=== PATIENT | female | born 1985 | race Caucasian/White ===

== ENCOUNTER 2018-03-25 14:49 | Emergency (ER) | payer MEDICAID ==
[~2018-03-25] VITALS: Ht 160 cm; Wt 70.0 kg
[2018-03-25 15:12] VITALS: BP 132/67
--- NOTE | 2018-03-25 15:30 | NUR ---
PT. CAME INTO THE ED W/ C/O VAGINAL BLEEDING X 1 WEEK. PT. STATES " I AM 13 WEEKS , I HAVE BEEN BLEEDING FOR ABOUT A WEEK BUT YESTERDAY IT GOT WORSE AND HAVE PASSED SOME BLOOD CLOTS, SO I CAME IN TO GO GET CHECKED OUT. I WENT TO MY BUSINESS WRITER ON 03/17/18 AND THEY SAID I HAD AN INFECTION IN THE URINE SO I AM STILL TAKING ANTIBIOTICS". PT. AAOX4, RR EVEN AND UNLABORED, DENIES FEVER, DENIES SOB, DENIES N/V/D. PT. IS A1. BUSINESS WRITER ESTABLISHED. PT. HAS 7/10 PAIN ON RLQ THAT RADIATES TO THE R FLANK AREA. PT. STATES " I HAVE HAD BURNING UPON URINATION. ER MD NOTIFIED. WILL CONTINUE TO MONITOR.
[2018-03-25 15:45] LABS: APPEARANCE,URINE CLEAR (CLEAR); BILIRUBIN,URINE NEGATIVE (NEGATIVE); BLOOD, URINE 3+ (NEGATIVE); COLOR,URINE YELLOW (YELLOW); LEUKOCYTE ESTERASE ,URINE TRACE (NEGATIVE); NITRITE, URINE NEGATIVE (NEGATIVE); UGLUCOSE NEGATIVE (NEGATIVE)
[2018-03-25 16:15] LABS: RBC,URINE 3-10 (FEW) /HPF (0-5); WBC,URINE 0-5 (RARE) /HPF (0-5)
[2018-03-25 16:22] LABS: BASOPHILS # (AUTO) 0.1 K/uL (0.00-0.22); EOSINOPHILS % (AUTO) 0.5 % (0.0-4.0); HEMATOCRIT 34.9 % (36-48); HEMOGLOBIN 10.8 g/dL (12.0-16.0); LYMPHOCYTES # (AUTO) 1.2 K/uL (2.5-16.5); LYMPHOCYTES % (AUTO) 15.5 % (20.5-51.1); MEAN CORPUSCULAR HEMOGLOBIN 23 pg (27-31); MEAN CORPUSCULAR HGB CONC 31 g/dL (33-37); MEAN CORPUSCULAR VOLUME 73.8 fL (80-94); MONOCYTES # (AUTO) 0.3 K/uL (0.8-1.0); NEUTROPHILS # (AUTO) 6.3 K/uL (1.8-7.7); PLATELET COUNT (AUTO) 255 K/uL (140-450); RED BLOOD CELL COUNT(AUTO) 4.73 MIL/uL (4.20-5.40); RED CELL DISTRIBUTION WIDTH 17.4 % (11.6-13.7); WHITE BLOOD COUNT (AUTO) 7.9 K/uL (4.8-10.8)
--- NOTE | 2018-03-25 16:38 | NUR ---
PT. RESTING IN BED, RR EVEN AND UNLABORED. BED IN LOWEST POSITION. WILL CONTINUE TO MONITOR.
[2018-03-25 17:04] LABS: ANION GAP 11.3 (8-16); CREATININE 0.6 mg/dL (0.6-1.3); POTASSIUM 3.3 mmol/L (3.5-5.1)
--- NOTE | 2018-03-25 17:38 | NUR ---
Assuming temporary care of the patient at this time.
--- NOTE | 2018-03-25 17:40 | NUR ---
pt resting comfortably in [facility] at this time. vss. safety precautions in place. will continue to monitor.
--- NOTE | 2018-03-25 18:37 | NUR ---
Pt continues to rest comfortably in the [facility] at this time. VSS remain stable. safety precautions in place. will continue to monitor.
--- NOTE | 2018-03-25 19:05 | NUR ---
Rhogam given at this time in left gluteus medius IM per order. Pt tolerated well.
[2018-03-25 19:50] VITALS: BP 117/58
== END 2018-03-25 19:50 | disposition home or self-care (01) ==
LOC: MED 14:49
DX: O20.0 Threatened abortion (principal); O23.41 Unspecified infection of urinary tract in pregnancy, first trimester; Z3A.08 8 weeks gestation of pregnancy
CPT/HCPCS: 36415; 36430; 76801; 80048; 81001; 84702; 85025; 86850; 86886; 86900; 86901; 99285; J2790

== ENCOUNTER 2018-07-28 16:24 | Emergency (ER) | payer MEDICAID ==
[~2018-07-28] VITALS: Ht 160 cm; Wt 70.1 kg
[2018-07-28 16:40] VITALS: BP 121/72
[2018-07-28 18:12] LABS: BASOPHILS # (AUTO) 0.1 K/uL (0.00-0.22); BASOPHILS % (AUTO) 0.9 % (0.0-2.0); EOSINOPHILS # (AUTO) 0.1 K/uL (0-0.4); EOSINOPHILS % (AUTO) 0.8 % (0.0-4.0); HEMATOCRIT 33.6 % (36-48); HEMOGLOBIN 10.8 g/dL (12.0-16.0); LYMPHOCYTES # (AUTO) 1.2 K/uL (2.5-16.5); LYMPHOCYTES % (AUTO) 16.3 % (20.5-51.1); MEAN CORPUSCULAR HEMOGLOBIN 23 pg (27-31); MEAN CORPUSCULAR HGB CONC 32 g/dL (33-37); MEAN CORPUSCULAR VOLUME 72.7 fL (80-94); MONOCYTES # (AUTO) 0.3 K/uL (0.8-1.0); MONOCYTES % (AUTO) 3.3 % (1.7-9.3); NEUTROPHILS % (AUTO) 78.7 % (42.2-75.2); PLATELET COUNT (AUTO) 240 K/uL (140-450); RED BLOOD CELL COUNT(AUTO) 4.62 MIL/uL (4.20-5.40); RED CELL DISTRIBUTION WIDTH 16.3 % (11.6-13.7); WHITE BLOOD COUNT (AUTO) 7.7 K/uL (4.8-10.8)
[2018-07-28 18:18] LABS: APPEARANCE,URINE CLEAR (CLEAR); COLOR,URINE STRAW (YELLOW)
[2018-07-28 18:19] LABS: BILIRUBIN,URINE NEGATIVE (NEGATIVE); BLOOD, URINE 3+ (NEGATIVE); LEUKOCYTE ESTERASE ,URINE NEGATIVE (NEGATIVE); NITRITE, URINE NEGATIVE (NEGATIVE); UGLUCOSE NEGATIVE (NEGATIVE)
[2018-07-28 18:46] LABS: RBC,URINE 0-5 (RARE) /HPF (0-5); WBC,URINE NONE SEEN /HPF (0-5)
[2018-07-28 18:58] VITALS: BP 120/68
== END 2018-07-28 18:58 | disposition home or self-care (01) ==
LOC: MED 16:24
DX: O36.4XX0 Maternal care for intrauterine death, not applicable or unspecified (principal); Z3A.01 Less than 8 weeks gestation of pregnancy; Z90.49 Acquired absence of other specified parts of digestive tract
CPT/HCPCS: 36415; 76801; 81001; 81025; 84702; 85025; 86900; 86901; 99285; Q0092

== ENCOUNTER 2023-04-11 21:14 | Emergency (ER) | payer BC, MEDICAID ==
[~2023-04-11] VITALS: Ht 157.5 cm; Wt 68.9 kg
[2023-04-11 21:26] VITALS: BP 116/76; PULSE 67; RESP 20; TEMP 98; O2SAT 98
--- NOTE | 2023-04-11 21:32 | NUR ---
pt in the lobby
[2023-04-11 22:24] LABS: APPEARANCE,URINE CLEAR (CLEAR); BILIRUBIN,URINE NEGATIVE (NEGATIVE); BLOOD, URINE NEGATIVE (NEGATIVE); COLOR,URINE YELLOW (YELLOW); LEUKOCYTE ESTERASE ,URINE NEGATIVE (NEGATIVE); NITRITE, URINE NEGATIVE (NEGATIVE); PH,URINE 7.5 (5.0-9.0); UGLUCOSE NEGATIVE (NEGATIVE)
[2023-04-11 22:27] LABS: BASOPHILS # (AUTO) 0.1 K/uL (0.00-0.22); EOSINOPHILS # (AUTO) 0.1 K/uL (0-0.4); EOSINOPHILS % (AUTO) 1.6 % (0.0-4.0); HEMATOCRIT 39.7 % (36-48); LYMPHOCYTES # (AUTO) 1.7 K/uL (2.5-16.5); MEAN CORPUSCULAR HEMOGLOBIN 32 pg (27-31); MEAN CORPUSCULAR HGB CONC 35 g/dL (33-37); MEAN CORPUSCULAR VOLUME 90.2 fL (80-94); MONOCYTES # (AUTO) 0.4 K/uL (0.8-1.0); MONOCYTES % (AUTO) 4.7 % (1.7-9.3); NEUTROPHILS # (AUTO) 5.5 K/uL (1.8-7.7); NEUTROPHILS % (AUTO) 70.7 % (42.2-75.2); PLATELET COUNT (AUTO) 253 K/uL (140-450); RED CELL DISTRIBUTION WIDTH 13.5 % (11.6-13.7); WHITE BLOOD COUNT (AUTO) 7.8 K/uL (4.8-10.8)
[2023-04-11 22:52] LABS: ALBUMIN 3.7 g/dL (3.4-5.0); ANION GAP 11.7 (8-16); CARBON DIOXIDE 27.2 mmol/L (21-32); CREATININE 0.7 mg/dL (0.6-1.3); POTASSIUM 3.9 mmol/L (3.5-5.1); TOTAL BILIRUBIN 0.7 mg/dL (0.0-1.0)
--- NOTE | 2023-04-12 00:15 | NUR ---
PT TO ROOM 7.
--- NOTE | 2023-04-12 00:16 | NUR ---
DR LOZANO AT BEDSIDE
[2023-04-12] MEDS ORDERED: ONDANSETRON 4 MG/2 ML VIAL IVP ONE (00:20)
[2023-04-12] MEDS ORDERED: MORPHINE SULFATE 4 MG/ML SYR IVP ONE (00:20)
--- NOTE | 2023-04-12 00:20 | NUR ---
37 YO F BIB SELF C/O RLQ ABD PAIN X 5 DAYS. PT PRESCRIBED TRAMADOL BY PREVIOUS DR BUT STATES DOES NOT HELP. PT STATES CONSTANT 8/10 PAIN ACCOMPANIED BY VBLOATING THAT CAUSES DISCOMFORT. NKDA PMHX: CHOLECYSTECTOMY
--- NOTE | 2023-04-12 00:54 | NUR ---
PT TO CT
--- NOTE | 2023-04-12 01:18 | NUR ---
ULTRASOUND AT BEDSIDE
--- NOTE | 2023-04-12 02:42 | NUR ---
PAIN LEVEL IS 0/10
[2023-04-12 03:10] VITALS: O2SAT 99
--- NOTE | 2023-04-12 03:18 | NUR ---
PT IS RESTING IN BED ON BEDSIDE [employer]. PENDING DISPO.
--- NOTE | 2023-04-12 03:44 | NUR ---
PT UP TO BATHROOM WITH STEADY GAIT. CALL LIGHT WITH IN REACH TO PT
--- NOTE | 2023-04-12 04:34 | NUR ---
PENDING CT AND US RESULTS
[2023-04-12 05:07] VITALS: O2SAT 99
[2023-04-12 05:51] VITALS: BP 105/66; PULSE 70; RESP 12; O2SAT 96
[2023-04-12] MEDS ORDERED: OMEP20EC11 PO (05:54)
[2023-04-12] MEDS ORDERED: ACET-2619 PO (05:54)
[2023-04-12] MEDS ORDERED: SIME80TA41 PO (05:54)
--- NOTE | 2023-04-12 06:01 | NUR ---
Patient discharged with v/s stable. Written and verbal after care instructions given and explained. Patient verbalized understanding. Ambulatory with steady gait. All questions addressed prior to discharge. Advised to follow up with PMD.
== END 2023-04-12 06:01 | disposition home or self-care (01) ==
LOC: MED 21:14
DX: R10.31 Right lower quadrant pain (principal); R14.0 Abdominal distension (gaseous); Z79.899 Other long term (current) drug therapy
CPT/HCPCS: 36415; 74176; 76856; 80053; 81003; 81025; 83690; 85025; 93976; 96374; 96375; 99285; J2270; J2405; Q0092

== ENCOUNTER 2023-05-14 14:08 | Emergency (ER) | payer BC ==
[~2023-05-14] VITALS: Ht 157.5 cm; Wt 68.7 kg
[~2023-05-14 14:08] MED LIST: ACET-2619 PO; OMEP20EC11 PO; SIME80TA41 PO
[2023-05-14 14:13] VITALS: BP 126/84; PULSE 87; RESP 20; TEMP 97; O2SAT 99
[2023-05-14 15:24] LABS: BASOPHILS % (AUTO) 0.6 % (0.0-2.0); EOSINOPHILS # (AUTO) 0.1 K/uL (0-0.4); EOSINOPHILS % (AUTO) 1.1 % (0.0-4.0); HEMATOCRIT 40.6 % (36-48); LYMPHOCYTES # (AUTO) 1.2 K/uL (2.5-16.5); MEAN CORPUSCULAR HEMOGLOBIN 32 pg (27-31); MEAN CORPUSCULAR HGB CONC 35 g/dL (33-37); MEAN CORPUSCULAR VOLUME 91.2 fL (80-94); MONOCYTES # (AUTO) 0.4 K/uL (0.8-1.0); MONOCYTES % (AUTO) 5.1 % (1.7-9.3); NEUTROPHILS # (AUTO) 5.7 K/uL (1.8-7.7); NEUTROPHILS % (AUTO) 77.2 % (42.2-75.2); PLATELET COUNT (AUTO) 239 K/uL (140-450); RED BLOOD CELL COUNT(AUTO) 4.45 MIL/uL (4.20-5.40); RED CELL DISTRIBUTION WIDTH 13.3 % (11.6-13.7); WHITE BLOOD COUNT (AUTO) 7.4 K/uL (4.8-10.8)
[2023-05-14 15:44] LABS: ALANINE AMINOTRANSFERASE 16 U/L (12-78); ALBUMIN 3.6 g/dL (3.4-5.0); ALKALINE PHOSPHATASE 89 U/L (50-136); ANION GAP 13.1 (8-16); ASPARTATE AMINOTRANSFERASE 23 U/L (15-37); CALCIUM 8.9 mg/dL (8.5-10.1); CARBON DIOXIDE 26.9 mmol/L (21-32); CHLORIDE 102 mmol/L (98-107); CREATININE 0.6 mg/dL (0.6-1.3); GFR ARICAN-AMERICAN 146 mL/min (>90); GFR NON ARICAN-AMERICAN 121 mL/min (>90); GLUCOSE 86 mg/dL (74-106); SODIUM SERUM 138 mmol/L (136-145); TOTAL BILIRUBIN 0.8 mg/dL (0.0-1.0); TOTAL PROTEIN, SERUM 7.2 g/dL (6.4-8.2); UREA NITROGEN, BLOOD 5 mg/dL (7-18)
[2023-05-14 16:20] VITALS: BP 115/79; PULSE 74; RESP 17; O2SAT 98
== END 2023-05-14 16:20 | disposition home or self-care (01) ==
LOC: MED 14:08
DX: R07.89 Other chest pain (principal); R06.02 Shortness of breath; R11.10 Vomiting, unspecified; Z90.49 Acquired absence of other specified parts of digestive tract; Z98.890 Other specified postprocedural states; Z79.899 Other long term (current) drug therapy
CPT/HCPCS: 36415; 71045; 80053; 84484; 85025; 93005; 99285

== ENCOUNTER 2023-07-23 10:42 | Emergency (ER) | payer BC ==
[~2023-07-23] VITALS: Ht 157.5 cm; Wt 68.0 kg
[2023-07-23 10:54] VITALS: BP 130/85; PULSE 91; RESP 14; TEMP 97.5; O2SAT 100
[2023-07-23 11:50] VITALS: TEMP 97.5
[2023-07-23 11:55] LABS: BASOPHILS % (AUTO) 0.5 % (0.0-2.0); EOSINOPHILS % (AUTO) 0.5 % (0.0-4.0); HEMATOCRIT 44.1 % (36-48); HEMOGLOBIN 15.5 g/dL (12.0-16.0); LYMPHOCYTES # (AUTO) 0.5 K/uL (2.5-16.5); LYMPHOCYTES % (AUTO) 7.3 % (20.5-51.1); MEAN CORPUSCULAR HEMOGLOBIN 33 pg (27-31); MEAN CORPUSCULAR HGB CONC 35 g/dL (33-37); MEAN CORPUSCULAR VOLUME 93.2 fL (80-94); MONOCYTES # (AUTO) 0.4 K/uL (0.8-1.0); MONOCYTES % (AUTO) 5.9 % (1.7-9.3); NEUTROPHILS # (AUTO) 5.3 K/uL (1.8-7.7); NEUTROPHILS % (AUTO) 85.8 % (42.2-75.2); PLATELET COUNT (AUTO) 216 K/uL (140-450); RED BLOOD CELL COUNT(AUTO) 4.73 MIL/uL (4.20-5.40); RED CELL DISTRIBUTION WIDTH 14.3 % (11.6-13.7); WHITE BLOOD COUNT (AUTO) 6.2 K/uL (4.8-10.8)
[2023-07-23 12:22] LABS: ANION GAP 18.1 (8-16); CALCIUM 9.8 mg/dL (8.5-10.1); CARBON DIOXIDE 26.9 mmol/L (21-32); CREATININE 0.6 mg/dL (0.6-1.3)
[2023-07-23 12:37] LABS: THYROID STIMULATING HORMONE 1.41 uIU/mL (0.34-3.74)
[2023-07-23 13:05] VITALS: BP 122/64; PULSE 74; RESP 17; O2SAT 98
== END 2023-07-23 13:05 | disposition home or self-care (01) ==
LOC: MED 10:42
DX: R07.9 Chest pain, unspecified (principal); R00.2 Palpitations; Z79.899 Other long term (current) drug therapy
CPT/HCPCS: 36415; 71045; 80048; 81025; 84443; 84484; 85025; 93005; 99285

== ENCOUNTER 2023-08-07 15:34 | Emergency (ER) | payer BC ==
[~2023-08-07] VITALS: Ht 157.5 cm; Wt 68.5 kg
[2023-08-07 15:39] VITALS: BP 124/65; PULSE 79; RESP 18; TEMP 98.1; O2SAT 99
[2023-08-07] MEDS ORDERED: KETOROLAC 30 MG/ML VIAL IM ONE (16:00)
[2023-08-07] MEDS ORDERED: NAPR-54 PO (16:02)
[2023-08-07] MEDS ORDERED: LID5T TP (16:02)
[2023-08-07 16:49] VITALS: PULSE 79
== END 2023-08-07 16:49 | disposition home or self-care (01) ==
LOC: MED 15:34
DX: M54.2 Cervicalgia (principal); V49.88XA Car occupant (driver) (passenger) injured in other specified transport accidents, initial encounter; Y93.89 Activity, other specified; Y92.89 Other specified places as the place of occurrence of the external cause; Y99.8 Other external cause status
CPT/HCPCS: 72050; 96372; 99283; J1885

== ENCOUNTER 2024-04-23 19:33 | Emergency (ER) | payer BC ==
[~2024-04-23] VITALS: Ht 160 cm; Wt 82.6 kg
[~2024-04-23 19:33] MED LIST changes: +LID5T TP; +NAPR-337 PO
[2024-04-23 19:41] VITALS: BP 113/70; PULSE 89; RESP 16; TEMP 97.7; O2SAT 97
[2024-04-23] MEDS ORDERED: POLY10DR5 OP (20:32)
[2024-04-23] MEDS: FLUORESCEIN OPTH STRIP 1 MG OP ONE (20:47)
[2024-04-23] MEDS: TETRACAINE HCL/PF 0.5% OPTH 4 ML BTL OP ONE (20:47)
== END 2024-04-23 20:38 | disposition home or self-care (01) ==
LOC: MED 19:33
DX: H10.9 Unspecified conjunctivitis (principal); Z79.1 Long term (current) use of non-steroidal anti-inflammatories (NSAID); Z79.2 Long term (current) use of antibiotics; Z79.899 Other long term (current) drug therapy
CPT/HCPCS: 99283

== ENCOUNTER 2024-04-27 15:25 | Emergency (ER) | payer BC ==
[~2024-04-27] VITALS: Ht 160 cm; Wt 74.0 kg
[~2024-04-27 15:25] MED LIST changes: +POLY10DR5 OP
[2024-04-27 15:43] VITALS: BP 124/82; PULSE 85; RESP 17; TEMP 97.9; O2SAT 98
[2024-04-27] MEDS: NACL 0.9% 1,000 ML IV ONE (16:00)
[2024-04-27] MEDS: ONDANSETRON 4 MG/2 ML VIAL IVP ONE (16:00)
[2024-04-27 16:21] LABS: APPEARANCE,URINE SLIGHTLY HAZY (CLEAR); BILIRUBIN,URINE NEGATIVE (NEGATIVE); BLOOD, URINE NEGATIVE (NEGATIVE); COLOR,URINE YELLOW (YELLOW); LEUKOCYTE ESTERASE ,URINE TRACE (NEGATIVE); NITRITE, URINE NEGATIVE (NEGATIVE); PH,URINE >=9.0 (5.0-9.0); PROTEIN,URINE 2+ (NEGATIVE); UGLUCOSE NEGATIVE (NEGATIVE); UROBILINOGEN,URINE 0.2 EU/dL (0.2 - 1)
[2024-04-27 16:22] LABS: BASOPHILS # (AUTO) 0.1 K/uL (0.00-0.22); BASOPHILS % (AUTO) 0.9 % (0.0-2.0); EOSINOPHILS % (AUTO) 0.3 % (0.0-4.0); HEMATOCRIT 42.2 % (36-48); HEMOGLOBIN 14.9 g/dL (12.0-16.0); LYMPHOCYTES # (AUTO) 1.2 K/uL (2.5-16.5); LYMPHOCYTES % (AUTO) 14.4 % (20.5-51.1); MEAN CORPUSCULAR HEMOGLOBIN 32 pg (27-31); MEAN CORPUSCULAR HGB CONC 35 g/dL (33-37); MEAN CORPUSCULAR VOLUME 90.9 fL (80-94); MONOCYTES # (AUTO) 0.2 K/uL (0.8-1.0); NEUTROPHILS # (AUTO) 6.5 K/uL (1.8-7.7); NEUTROPHILS % (AUTO) 81.4 % (42.2-75.2); PLATELET COUNT (AUTO) 310 K/uL (140-450); RED BLOOD CELL COUNT(AUTO) 4.65 MIL/uL (4.20-5.40); RED CELL DISTRIBUTION WIDTH 12.9 % (11.6-13.7)
[2024-04-27 16:23] LABS: RBC,URINE 0-5 /HPF (0-5); WBC,URINE 0-5 /HPF (0-5)
[2024-04-27 16:24] LABS: BACTERIA,URINE 2+ /HPF (None Seen); MUCUS,URINE None Seen /LPF (None Seen); SQUAMOUS EPITHELIAL CELL,UR 0-3 (FEW) /LPF (0-3 (FEW))
[2024-04-27 16:36] LABS: ALBUMIN 3.6 g/dL (3.4-5.0); ANION GAP 13.2 (8-16); CALCIUM 8.4 mg/dL (8.5-10.1); CARBON DIOXIDE 27.3 mmol/L (21-32); CREATININE 0.6 mg/dL (0.6-1.3); POTASSIUM 3.5 mmol/L (3.5-5.1); TOTAL BILIRUBIN 0.7 mg/dL (0.0-1.0); TOTAL PROTEIN, SERUM 7.2 g/dL (6.4-8.2)
[2024-04-27] MEDS ORDERED: NITR100C7 PO (17:12)
[2024-04-27] MEDS ORDERED: ONDA-188 SL (17:12)
[2024-04-27 18:23] VITALS: BP 118/68; PULSE 75; RESP 14; TEMP 97.7; O2SAT 100
== END 2024-04-27 18:23 | disposition home or self-care (01) ==
LOC: MED 15:25
DX: K52.9 Noninfective gastroenteritis and colitis, unspecified (principal); Z79.899 Other long term (current) drug therapy; Z79.1 Long term (current) use of non-steroidal anti-inflammatories (NSAID)
CPT/HCPCS: 36415; 80053; 81001; 81025; 83690; 85025; 87086; 96361; 96374; 99283; J2405; J7030